=== PATIENT | male | born 2000 | race Caucasian/White ===

== ENCOUNTER 2019-10-03 09:01 | Emergency (ER) | payer MEDICAID ==
[~2019-10-03] VITALS: Ht 188 cm; Wt 100.0 kg
--- NOTE | 2019-10-03 09:26 | NUR ---
ALISON SharmaP at bedside.
[2019-10-03 10:45] VITALS: BP 129/77
== END 2019-10-03 10:48 | disposition home or self-care (01) ==
LOC: ER 09:02
DX: M25.532 Pain in left wrist (principal); V19.88XA Pedal cyclist (driver) (passenger) injured in other specified transport accidents, initial encounter; Y93.55 Activity, bike riding; Y92.413 State road as the place of occurrence of the external cause; Y99.9 Unspecified external cause status
CPT/HCPCS: 29125; 73110; 99283